=== PATIENT | female | born 1970 | race Caucasian/White ===

== ENCOUNTER → 2022-02-18 14:52 | Outpatient (CLI) | payer OTHER, SELFPAY ==
--- NOTE | ~2022-02-18 | US_ITS ---
EXAMINATION: US transvaginal DATE: 02/18/2022 15:20 INDICATION: Excessive and frequent menstruation with regular cycle. TECHNIQUE: Multiple transvaginal sonographic images of the pelvis were obtained. COMPARISON: None. FINDINGS: The uterus measures 9.2 x 5.3 x 6.1 cm. There is no free fluid in the pelvis. The endometrial complex measures 10 mm in thickness. The right ovary measures 2.3 x 1.6 x 2.1 cm. The left ovary measures 2. 3 x 3.4 x 2.2 cm. IMPRESSION: 1. Normal pelvis. Reviewed, dictated and finalized at location B. IMPRESSION: 1. Normal pelvis.
== END ==
PROVIDERS: PCP Family Medicine; Visit Provider Nurse Practitioner
DX: N92.0 Excessive and frequent menstruation with regular cycle (principal)
CPT/HCPCS: 76830

== ENCOUNTER → 2022-04-03 16:23 | Outpatient (CLI) | payer OTHER, SELFPAY ==
--- NOTE | ~2022-04-03 | MM_ITS ---
EXAMINATION: MM screening millicent BI w aman HISTORY: Screening mammogram TECHNIQUE: Craniocaudal and mediolateral oblique 3-D tomosynthesis images were obtained and synthetic 2-D images were generated. CAD analysis was submitted and interpreted. COMPARISON: No prior mammogram is available for comparison at this institution. BREAST PARENCHYMAL COMPOSITION: The breasts are heterogeneously dense, which may obscure small masses . FINDINGS: There is no evidence of suspicious mass, calcification, or architectural distortion to sugg est malignancy in either breast. There has been no suspicious interval change. IMPRESSION: 1. No mammographic evidence of malignancy. 2. Recommend routine screening mammography in one year. BI-RADS Category 1: Negative Reviewed, dictated and finalized at location A.
== END ==
PROVIDERS: PCP Physician Assistant; Visit Provider Nurse Practitioner
DX: Z12.31 Encounter for screening mammogram for malignant neoplasm of breast (principal)
CPT/HCPCS: 77063; 77067

== ENCOUNTER 2022-10-14 08:37 | Emergency (ER) | payer OTHER, SELFPAY ==
[2022-10-14 08:52] VITALS: BP 132/62; PULSE 65; RESP 16; TEMP 36.2; O2SAT 99
--- NOTE | 2022-10-14 08:53 | ED.URI ---
HPI - URI/Sore Throat General Chief Complaint: Upper Respiratory Infection Stated Complaint: uri Time Seen by Provider: 10/14/22 08:53 Source: patient, RN notes reviewed and old records reviewed Mode of arrival: ambulatory Limitations: no limitations History of Present Illness HPI Narrative: 51-year-old female presents to the [facility] with complaints of sinus congestion, sinus drainage and intermittent dizziness some sometime last week. Reports taking Mucinex. No other treatment prior to arrival. Denies fevers, headache, nausea, vomiting, chest pain or abdominal pain. Treatments prior to arrival: cold medicine Related Data Home Medications Medication Instructions Recorded Confirmed mecobalamin (vitamin B12) 1,000 1,000 mcg PO DAILY 10/24/20 10/14/22 mcg chewable tablet iron 18 mg tablet 18 mg PO DAILY 04/09/22 10/14/22 Allergies Allergy/AdvReac Type Severity Reaction Status Date / Time aspirin Allergy Intermediate Vomiting Verified 10/14/22 08:59 Review of Systems Review of Systems: All systems reviewed & are unremarkable except as noted in HPI and below Constitutional: Constitutional: Reports no additional constitutional complaints Eyes: Eyes: Reports no additional eye complaints ENT: Reports as per HPI and Reports nasal congestion Cardiovascular: Cardiovascular: Reports no additional cardiovascular complaints, Denies chest pain and Denies dyspnea Respiratory: Respiratory: Reports no additional respiratory complaints, Denies chest congestion, Denies cough and Denies dyspnea Gastrointestinal: Gastrointestinal: Reports no additional gastrointestinal complaints, Denies abdominal pain, Denies nausea and Denies vomiting Musculoskeletal: Musculoskeletal: Reports no additional musculoskeletal complaints Integumentary/Breasts: Skin/Breast: Reports system reviewed and no additional complaints, except as docu Neurologic: Reports system reviewed and no additional complaints, except as documented Psychiatric: Psychiatric: Reports no additional psychiatric complaints Allergic/Immunologic: Allergic/Immunologic: Reports no additional allergic/immunologic complaints [facility] Past Medical History Medical History (Updated 10/14/22 @ 09:05 by Jolly Israel APRN) Vitamin D deficiency Surgical History Surgical History H/O bariatric surgery (~2014) H/O tubal ligation (~1995) Hx of cholecystectomy Family History Family History Mother Family history of hypercholesterolemia Hypertension Father Family history of hypercholesterolemia Hypertension Family history of coronary artery disease Grandparent Family history of hypercholesterolemia Hypertension Family history of malignant neoplasm of breast Sibling Family history of hypercholesterolemia Hypertension Social History Social History Smoking status: Current every day smoker Alcohol intake: never Substance use: never Substance use type: does not use Comments At the time of my signature, I reviewed and agree with the nursing past medical, surgical, social, and family history. There is no relevant family history pertinent to the patient complaint. Exam Const: General: cooperative, healthy appearing, comfortable, no acute distress, well developed, alert and well nourished Nutritional Appearance: well nourished Orientation/consciousness: patient oriented x3 Limitations: no limitations HENMT: Head: normal to inspection Ears: hearing grossly normal bilaterally, external ears normal, EAC's normal and TM abnormal bulging on the right and with fluid behind the TM on the right Face/Nose/Sinus: Normal external nose present, Normal nares present, Normal nasal mucous membranes and turbinates present and normal facial exam Face and sinus: normal facial exam Mouth: Yes Normal oral and p
== END 2022-10-14 09:04 | disposition home or self-care (01) ==
PROVIDERS: Emergency Provider Nurse Practitioner; PCP Family Medicine
DX: H65.01 Acute serous otitis media, right ear (principal); J01.90 Acute sinusitis, unspecified; F17.200 Nicotine dependence, unspecified, uncomplicated
CPT/HCPCS: 99213; G0463

== ENCOUNTER 2023-01-17 08:49 | Emergency (ER) | payer OTHER, SELFPAY ==
[2023-01-17 09:00] VITALS: BP 139/88; PULSE 70; RESP 16; TEMP 36.4; O2SAT 99
--- NOTE | 2023-01-17 09:39 | ED.EAR ---
HPI - Ear Problem General Chief complaint: Ear Stated complaint: Left Ear Irritation/Sinus Time Seen by Provider: 01/17/23 09:35 Source: patient Mode of arrival: ambulatory Limitations: no limitations History of Present Illness HPI Narrative: patient is a 52-year-old female who presents with left ear pain and congestion for 2 days. States she has tried her Flonase and allergy medication with little to no relief. patient states she has ear infections frequently. Denies any fever, shortness of breath, cough. Related Data Allergies Allergy/AdvReac Type Severity Reaction Status Date / Time aspirin Allergy Intermediate Vomiting Verified 01/17/23 08:54 Review of Systems Review of Systems: All systems reviewed & are unremarkable except as noted in HPI and below Constitutional: Constitutional: Reports no additional constitutional complaints, Denies body ache(s), Denies chills, Denies excessive sweating, Denies fever(s), Denies headache(s) and Denies malaise Eyes: Eyes: Denies blurry vision, Denies eye discharge and Denies irritation ENT: Reports otalgia, Denies headache(s), Reports nasal congestion, Denies nasal discharge and Denies sore throat Cardiovascular: Cardiovascular: Denies chest pain, Denies edema, Denies palpitations and Denies dyspnea on exertion Respiratory: Respiratory: Denies cough and Denies dyspnea on exertion Gastrointestinal: Gastrointestinal: Denies abdominal pain, Denies diarrhea, Denies nausea and Denies vomiting Musculoskeletal: Musculoskeletal: Denies back pain, Denies arthralgias and Denies muscle weakness Integumentary/Breasts: Skin/Breast: Denies pruritus and Denies rash Neurologic: Denies headache(s) Psychiatric: Psychiatric: Reports no additional psychiatric complaints Endocrine: Endocrine: Denies excessive sweating and Denies palpitations [facility] Past Medical History Medical History (Updated 01/17/23 @ 09:41 by Emilie Salazar APRN) Vitamin D deficiency Surgical History Surgical History H/O bariatric surgery (~2014) H/O tubal ligation (~1995) Hx of cholecystectomy Family History Family History Mother Family history of hypercholesterolemia Hypertension Father Family history of hypercholesterolemia Hypertension Family history of coronary artery disease Grandparent Family history of hypercholesterolemia Hypertension Family history of malignant neoplasm of breast Sibling Family history of hypercholesterolemia Hypertension Social History Social History (Updated 10/28/22 @ 09:52 by Rebecca Sandoval PA-C) Smoking status: Current every day smoker Alcohol intake: never Substance use: never Substance use type: does not use Lack of Transportation: No Lack of Food: Never True Current Housing: I Have Housing Concerned About Future Housing: No Difficulty Paying Gas/Electric Bills: No Difficulty Paying for Meds: No Currently Unemployed: No Education: Master's Degree or Higher Difficulty w/ Childcare or Family Care: No Comments At time of signature, agree with nursing past medical, surgical, social and family history. There is no relevant family history pertinent to the presenting complaint? Exam Const: General: cooperative, healthy appearing, no acute distress and well nourished Nutritional Appearance: well nourished Orientation/consciousness: patient oriented x3 Limitations: no limitations HENMT: Head: normal to inspection, normocephalic and atraumatic Ears: hearing grossly normal bilaterally, TM normal on the right, no periauricular adenopathy and TM abnormal bulging on the left and erythematous on the left Face/Nose/Sinus: Normal external nose present, Normal nares present, Normal nasal mucous membranes and turbinates present, No nasal discharge present, normal facial exam and sinuses nontender Face and sinus: normal facial e
== END 2023-01-17 09:45 | disposition home or self-care (01) ==
PROVIDERS: Emergency Provider Nurse Practitioner Family; PCP Family Medicine
DX: H66.92 Otitis media, unspecified, left ear (principal); F17.200 Nicotine dependence, unspecified, uncomplicated
CPT/HCPCS: 99213; G0463

== ENCOUNTER 2023-08-03 13:23 | Emergency (ER) | payer OTHER, SELFPAY ==
[2023-08-03 13:35] VITALS: BP 128/75; PULSE 63; RESP 16; TEMP 36.8; O2SAT 98
--- NOTE | 2023-08-03 13:56 | ED.URI ---
HPI - URI/Sore Throat General Chief Complaint: Upper Respiratory Infection Stated Complaint: headache, stuffy nose Time Seen by Provider: 08/03/23 13:56 Source: patient, RN notes reviewed and old records reviewed Mode of arrival: ambulatory Limitations: no limitations History of Present Illness HPI Narrative: 52-year-old female presents to the [facility] with complaints of a headache and stuffy nose. Symptoms started 1 week ago. Has taken [id number] products a couple of times with minimal relief. Denies any fevers. Denies chest pain or shortness of breath. Denies coughing. Onset (ago): week(s) (1) Related Data Allergies Allergy/AdvReac Type Severity Reaction Status Date / Time aspirin Allergy Intermediate Vomiting Verified 01/29/23 14:55 Review of Systems Review of Systems: All systems reviewed & are unremarkable except as noted in HPI and below Constitutional: Constitutional: Reports no additional constitutional complaints Eyes: Eyes: Reports no additional eye complaints ENT: Reports as per HPI, Reports nasal congestion, Reports sinus pressure and Reports sore throat Cardiovascular: Cardiovascular: Reports no additional cardiovascular complaints, Denies chest pain and Denies dyspnea Respiratory: Respiratory: Reports no additional respiratory complaints, Denies chest congestion, Denies cough and Denies dyspnea Gastrointestinal: Gastrointestinal: Reports no additional gastrointestinal complaints, Denies abdominal pain, Denies nausea and Denies vomiting Musculoskeletal: Musculoskeletal: Reports no additional musculoskeletal complaints Integumentary/Breasts: Skin/Breast: Reports system reviewed and no additional complaints, except as docu Neurologic: Reports system reviewed and no additional complaints, except as documented Psychiatric: Psychiatric: Reports no additional psychiatric complaints Allergic/Immunologic: Allergic/Immunologic: Reports no additional allergic/immunologic complaints [facility] Past Medical History Medical History Vitamin D deficiency Surgical History Surgical History H/O bariatric surgery (~2014) H/O tubal ligation (~1995) Hx of cholecystectomy Family History Family History Mother Family history of hypercholesterolemia Hypertension Father Family history of hypercholesterolemia Hypertension Family history of coronary artery disease Grandparent Family history of hypercholesterolemia Hypertension Family history of malignant neoplasm of breast Sibling Family history of hypercholesterolemia Hypertension Social History Social History Smoking status: Current every day smoker Alcohol intake: never Substance use: never Substance use type: does not use Lack of Transportation: No Lack of Food: Never True Current Housing: I Have Housing Concerned About Future Housing: No Difficulty Paying Gas/Electric Bills: No Difficulty Paying for Meds: No Currently Unemployed: No Education: Master's Degree or Higher Difficulty w/ Childcare or Family Care: No Comments At the time of my signature, I reviewed and agree with the nursing past medical, surgical, social, and family history. There is no relevant family history pertinent to the patient complaint. Exam Const: General: cooperative, healthy appearing, comfortable, no acute distress, well developed, alert and well nourished Nutritional Appearance: well nourished Orientation/consciousness: patient oriented x3 Limitations: no limitations HENMT: Head: normal to inspection Ears: hearing grossly normal bilaterally, external ears normal, TM's normal bilaterally and EAC's normal Face/Nose/Sinus: Normal external nose present, Normal nares present, Normal nasal mucous membranes and turbinates present
== END 2023-08-03 14:08 | disposition home or self-care (01) ==
PROVIDERS: Emergency Provider Nurse Practitioner; PCP Family Medicine
DX: J06.9 Acute upper respiratory infection, unspecified (principal); F17.200 Nicotine dependence, unspecified, uncomplicated
CPT/HCPCS: 87081; 87880; 99213; G0463

== ENCOUNTER 2023-08-26 11:17 | Outpatient (CLI) | payer OTHER, SELFPAY ==
--- NOTE | ~2023-08-26 | XR_ITS ---
Clinical Indication: Cough PA and lateral views of the chest: Comparison: None Findings: The lungs are clear, without evidence of focal consolidation or pleural effusion. Cardiome diastinal silhouette is within normal limits. Calcified right paratracheal lymph nodes noted. Bones a nd soft tissues are unremarkable. Impression: Clear lungs. Reviewed, dictated and finalized at location . Impression: Clear lungs.
--- NOTE | ~2023-08-26 | XR_ITS ---
EXAMINATION: XR abdomen/kub 1V DATE: 08/26/2023 11:26 INDICATION: Abdominal pain. TECHNIQUE: A supine view of the abdomen on 2 radiographs was obtained. COMPARISON: None. FINDINGS: There are no dilated loops of bowel. There is a small volume of stool in the colon. Surgica l clips in the right upper quadrant are likely from cholecystectomy. There is a small hiatal hernia. A calcified left lung nodule and calcified mediastinal lymph nodes are consistent with old granulomat ous disease. IMPRESSION: 1. Small hiatal hernia. Reviewed, dictated and finalized at location E. IMPRESSION: 1. Small hiatal hernia.
== END 2023-08-26 11:18 ==
PROVIDERS: PCP Family Medicine; Visit Provider Family Medicine
DX: R10.9 Unspecified abdominal pain (principal); R05.9 Cough, unspecified; K44.9 Diaphragmatic hernia without obstruction or gangrene
CPT/HCPCS: 71046; 74018

== ENCOUNTER 2023-08-27 14:29 | Outpatient (CLI) | payer OTHER, SELFPAY ==
[2023-08-27 15:24] LABS: Alanine Aminotransferase 328 U/L (6-35); Albumin Level 4.2 g/dL (3.5-5.1); Alkaline Phosphatase 238 U/L (38-126); Aspartate Amino Transferase 178 U/L (14-36); Bilirubin,Total 0.6 mg/dL (0.2-1.3)
[2023-08-27 15:33] LABS: Prothrombin Time 13.3 Seconds (11.1-14.7)
[2023-08-27 16:44] LABS: Hepatitis B Surface Antigen Negative (Negative)
[2023-08-27 16:50] LABS: HAV RESULT Negative (Negative); Hepatitis B Core IgM Result Negative (Negative)
[2023-08-27 17:02] LABS: Hepatitis C Virus Antibody Negative (Negative)
== END 2023-08-27 14:30 | disposition home or self-care (01) ==
PROVIDERS: PCP Family Medicine; Visit Provider Physician Assistant
DX: R74.8 Abnormal levels of other serum enzymes (principal); R79.89 Other specified abnormal findings of blood chemistry
CPT/HCPCS: 36415; 80074; 80076; 85610

== ENCOUNTER 2023-08-28 06:41 | Outpatient (CLI) | payer OTHER, SELFPAY ==
--- NOTE | ~2023-08-28 | US_ITS ---
EXAMINATION: US abdomen limited DATE: 08/28/2023 07:30 INDICATION: Abnormal levels of other serum enzymes. TECHNIQUE: Multiple grayscale and Doppler ultrasound images of the abdomen were obtained. COMPARISON: None FINDINGS: The visualized portions of the head, body, and tail of the pancreas are normal. There is di ffuse hepatic steatosis. No liver surface nodularity. There is normal flow in main portal vein. The g allbladder is absent. The common duct is normal and measures 8 mm. IMPRESSION: 1. Diffuse hepatic steatosis. Reviewed, dictated and finalized at location E.
== END 2023-08-28 06:42 | disposition home or self-care (01) ==
LOC: ANHIMG 06:45
PROVIDERS: PCP Family Medicine; Visit Provider Physician Assistant
DX: K76.0 Fatty (change of) liver, not elsewhere classified (principal)
CPT/HCPCS: 76705

== ENCOUNTER → 2023-11-19 08:44 | Outpatient (CLI) | payer OTHER, SELFPAY ==
--- NOTE | ~2023-11-19 | CT_ITS ---
EXAMINATION:CT lung screening DATE: 11/19/2023 08:55 INDICATION: Personal history of nicotine dependence. Current smoker with 27 pack year history. TECHNIQUE: Computed tomography (CT) of the chest was performed without intravenous contrast. Automate d exposure control and iterative reconstruction technique were employed. The dose-length product (DLP ) was 101.42 mGy-cm. COMPARISON: Chest 2 views 08/26/2023 FINDINGS: A calcified left lung nodule and calcified left hilar and mediastinal lymph nodes are consi stent with old granulomatous disease. No pleural effusion. The heart size is normal. No pericardial e ffusion. There is a small sliding hiatal hernia. There are surgical changes of the stomach. There is mild thoracic spondylosis. IMPRESSION: 1. Lung-RADS category 1: Negative. Continue annual screening with noncontrast low-dose chest CT in 12 months. Reviewed, dictated and finalized at location E. [employer] IMPRESSION: 1. Lung-RADS category 1: Negative. Continue annual screening with noncontrast l ow-dose chest CT in 12 months.
== END ==
PROVIDERS: PCP Physician Assistant; Visit Provider Physician Assistant
DX: Z12.2 Encounter for screening for malignant neoplasm of respiratory organs (principal); Z87.891 Personal history of nicotine dependence
CPT/HCPCS: 71271

== ENCOUNTER 2023-12-28 01:27 | Day surgery (SDC) | payer OTHER, SELFPAY ==
[2023-11-27 10:36] VITALS: BMI 33.0
--- NOTE | 2023-12-25 12:28 | SUR.PREOP ---
Patient called regarding upcoming procedure. Reviewed preop instructions, appointment times, and procedure prep.
--- NOTE | 2023-12-25 17:10 | PM.HPGS ---
History of Present Illness History of Present Illness Consent: Risks, benefits, and alternatives have been discussed and questions answered. Patient agrees to proceed with procedure. Chief complaint: neoplasm screening Narrative: Xiomara Rangel is a 53 year old female referred for colon cancer screening Review of Systems Review of Systems: All systems reviewed & are unremarkable except as noted in HPI and below PMFSH Past Medical History Medical History Obesity Vitamin D deficiency Surgical History Surgical History H/O bariatric surgery (~2014) H/O tubal ligation (~1995) Hx of cholecystectomy Family History Family History Mother Family history of hypercholesterolemia Hypertension Father Family history of hypercholesterolemia Hypertension Family history of coronary artery disease Grandparent Family history of hypercholesterolemia Hypertension Family history of malignant neoplasm of breast Sibling Family history of hypercholesterolemia Hypertension Social History Social History Years smoked: 3 Smoking status: Light tobacco smoker Tobacco type: cigarettes Alcohol intake: never Substance use: never Substance use type: does not use Lack of Transportation: No Lack of Food: Never True Current Housing: I Have Housing Concerned About Future Housing: No Difficulty Paying Gas/Electric Bills: No Difficulty Paying for Meds: No Currently Unemployed: No Education: Master's Degree or Higher Difficulty w/ Childcare or Family Care: No Living arrangements: alone Spiritual care concerns: No Meds Home Medications and Allergies Home Medications Medication Instructions Recorded Confirmed Type pantoprazole 40 mg tablet,delayed 40 mg PO QAM #30 tabs 11/23/23 11/27/23 Rx release (Protonix) celecoxib 200 mg capsule 200 mg PO PRN PRN Pain 11/27/23 11/27/23 History Allergies Allergy/AdvReac Type Severity Reaction Status Date / Time aspirin Allergy Intermediate Vomiting Verified 12/28/23 07:56 Exam Resp: Auscultation: clear to auscultation bilaterally Cardio: Rate: regular rate Rhythm: regular rhythm GI: GI Palp: Yes Soft to palpation and No Tenderness to palpation present (GI) Assessment and Plan Assessment and plan (1) Colon cancer screening: Code(s): Z12.11 - Encounter for screening for malignant neoplasm of colon Status: Acute Assessment and Plan: Colonoscopy with possible biopsy or polypectomy or cautery or injection of substances.
[2023-12-28 07:58] VITALS: BP 113/77; PULSE 65; RESP 18; TEMP 36.2; O2SAT 99
[2023-12-28] MEDS: LACTATED RINGERS 1,000 ML 150 ML IV CONT (08:06)
--- NOTE | 2023-12-28 08:12 | WPDANESEPPF ---
Anes - Initial Pre Proc Eval Procedure: Operation Date: 12/28/23 09:00 Proposed Procedures p Screening Colonoscopy - Malvin Metzger MD Date/Time: 12/28/23 08:12 Surgeon: Malvin Metzger MD Pre Op Diagnosis: neoplasm screening Patient Data Age: 53 Gender: F Height: 1.7 m Weight: 95.5 kg Last Vital Signs Temp 36.2 C L 12/28/23 07:58 Pulse 65 12/28/23 07:58 Resp 18 12/28/23 07:58 BP 113/77 12/28/23 07:58 Pulse Ox 65 L 12/28/23 07:58 O2 Del Method Room Air 12/28/23 07:58 Allergies Allergy/AdvReac Type Severity Reaction Status Date / Time aspirin Allergy Intermediate Vomiting Verified 12/28/23 07:56 Home Medications Medication Instructions Recorded Confirmed Type pantoprazole 40 mg tablet,delayed 40 mg PO QAM #30 tabs 11/23/23 11/27/23 Rx release (Protonix) celecoxib 200 mg capsule 200 mg PO PRN PRN Pain 11/27/23 11/27/23 History Patient hx anesthesia problems: none Family hx anesthesia problems: none Results Review: All pre-operative results and documents have been reviewed as part of the pre-operative evaluation. [facility] Past Medical History Medical History (Updated 12/28/23 @ 08:12 by John Hay MD) Obesity Vitamin D deficiency Surgical History Surgical History H/O bariatric surgery (~2014) H/O tubal ligation (~1995) Hx of cholecystectomy Family History Family History Mother Family history of hypercholesterolemia Hypertension Father Family history of hypercholesterolemia Hypertension Family history of coronary artery disease Grandparent Family history of hypercholesterolemia Hypertension Family history of malignant neoplasm of breast Sibling Family history of hypercholesterolemia Hypertension Social History Social History Years smoked: 3 Smoking status: Light tobacco smoker Tobacco type: cigarettes Alcohol intake: never Substance use: never Substance use type: does not use Lack of Transportation: No Lack of Food: Never True Current Housing: I Have Housing Concerned About Future Housing: No Difficulty Paying Gas/Electric Bills: No Difficulty Paying for Meds: No Currently Unemployed: No Education: Master's Degree or Higher Difficulty w/ Childcare or Family Care: No Living arrangements: alone Spiritual care concerns: No Anes - Eval Final PreProcedure Day of Procedure 12/28/23 08:12 Patient weight: obese Heart: regular rate and rhythm Lungs: clear to auscultation Airway: Mallampati scale class II Neurological: alert and oriented Last oral intake: >/= 8 hours ASA classification: III Emergent: no Anesthetic plan: proceed Anesthesia type and monitoring: general GIVS and standard monitoring Results Review: All pre-operative results and documents have been reviewed as part of the pre-operative evaluation. Informed Consent: The patient's anesthetic plan and its attendant risks and benefits were discussed with the patient/family/POA. Questions were solicited and answers provided to the satisfaction of the patient/family/POA.
[2023-12-28] MEDS: SIMETHICONE ORAL SUSPENSION 20 MG/0.3 ML 30 ML BOTTLE 0.6 ML IRRIGATION (09:03)
[2023-12-28 09:10] VITALS: BP 110/63; PULSE 60; RESP 16; O2SAT 99
[2023-12-28 09:20] VITALS: BP 109/61; PULSE 65; RESP 21; O2SAT 99
[2023-12-28 09:30] VITALS: BP 135/88; PULSE 60; RESP 16; O2SAT 100
== END 2023-12-28 09:35 | disposition home or self-care (01) ==
PROVIDERS: PCP Physician Assistant; Visit Provider Internal Medicine Gastroenterology
PROC: 0DJD8ZZ Inspection of Lower Intestinal Tract, Via Natural or Artificial Opening Endoscopic (ICD-10-PCS; CPT 45378; principal; 2023-12-28 09:00)
DX: Z12.11 Encounter for screening for malignant neoplasm of colon (principal); K62.89 Other specified diseases of anus and rectum; E55.9 Vitamin D deficiency, unspecified; F17.210 Nicotine dependence, cigarettes, uncomplicated; E66.9 Obesity, unspecified; Z68.33 Body mass index [BMI] 33.0-33.9, adult; Z98.84 Bariatric surgery status; Z90.49 Acquired absence of other specified parts of digestive tract; Z82.49 Family history of ischemic heart disease and other diseases of the circulatory system; Z80.3 Family history of malignant neoplasm of breast
CPT/HCPCS: 45378; J2704; J7120

== ENCOUNTER 2024-05-06 11:12 | Emergency (ER) | payer OTHER, SELFPAY ==
--- NOTE | 2024-05-06 11:17 | ED.URI ---
HPI - URI/Sore Throat General Chief Complaint: Upper Respiratory Infection Stated Complaint: sore throat,ears hurt, cold symptoms Time Seen by Provider: 05/06/24 11:24 Source: patient, RN notes reviewed and old records reviewed Mode of arrival: ambulatory Limitations: no limitations History of Present Illness HPI Narrative: 53-year-old female presents to the [facility] with complaints of URI symptoms x1 week. Reports bilateral ear pain. Related Data Home Medications Medication Instructions Recorded Confirmed celecoxib 200 mg capsule 200 mg PO PRN PRN Pain 11/27/23 05/06/24 albuterol sulfate 90 mcg/actuation 2 puff inhalation QID 05/06/24 05/06/24 aerosol inhaler Allergies Allergy/AdvReac Type Severity Reaction Status Date / Time aspirin Allergy Intermediate Vomiting Verified 05/06/24 11:15 Review of Systems Review of Systems: All systems reviewed & are unremarkable except as noted in HPI and below Constitutional: Constitutional: Reports no additional constitutional complaints Eyes: Eyes: Reports no additional eye complaints ENT: Reports as per HPI Cardiovascular: Cardiovascular: Reports no additional cardiovascular complaints, Denies chest pain and Denies dyspnea Respiratory: Respiratory: Reports no additional respiratory complaints, Denies chest congestion, Denies cough and Denies dyspnea Gastrointestinal: Gastrointestinal: Reports no additional gastrointestinal complaints, Denies abdominal pain, Denies nausea and Denies vomiting Musculoskeletal: Musculoskeletal: Reports no additional musculoskeletal complaints Integumentary/Breasts: Skin/Breast: Reports system reviewed and no additional complaints, except as docu Neurologic: Reports system reviewed and no additional complaints, except as documented Psychiatric: Psychiatric: Reports no additional psychiatric complaints Allergic/Immunologic: Allergic/Immunologic: Reports no additional allergic/immunologic complaints [facility] Past Medical History Medical History Obesity Vitamin D deficiency Surgical History Surgical History H/O bariatric surgery (~2014) H/O tubal ligation (~1995) Hx of cholecystectomy Family History Family History Mother Family history of hypercholesterolemia Hypertension Father Family history of hypercholesterolemia Hypertension Family history of coronary artery disease Grandparent Family history of hypercholesterolemia Hypertension Family history of malignant neoplasm of breast Sibling Family history of hypercholesterolemia Hypertension Social History Social History Years smoked: 3 Smoking status: Light tobacco smoker Tobacco type: cigarettes Alcohol intake: never Substance use: never Substance use type: does not use Lack of Transportation: No Lack of Food: Never True Current Housing: I Have Housing Concerned About Future Housing: No Difficulty Paying Gas/Electric Bills: No Difficulty Paying for Meds: No Currently Unemployed: No Education: Master's Degree or Higher Difficulty w/ Childcare or Family Care: No Living arrangements: alone Spiritual care concerns: No Comments At the time of my signature, I reviewed and agree with the nursing past medical, surgical, social, and family history. There is no relevant family history pertinent to the patient complaint. Exam Const: General: cooperative, healthy appearing, comfortable, no acute distress, well developed, alert and well nourished Nutritional Appearance: well nourished Orientation/consciousness: patient oriented x3 Limitations: no limitations HENMT: Head: normal to inspection Ears: hearing grossly normal bilaterally, external ears normal, TM normal on the right, mastoids normal, no periauricular adenopa
[2024-05-06 11:27] VITALS: BP 128/73; PULSE 73; RESP 20; TEMP 37.2; O2SAT 96
[2024-05-06 11:43] LABS: EDINFLUASCREEN Negative; EDINFLUBSCREEN Negative
== END 2024-05-06 11:50 | disposition home or self-care (01) ==
PROVIDERS: Emergency Provider Nurse Practitioner; PCP Family Medicine
DX: H66.91 Otitis media, unspecified, right ear (principal); R09.82 Postnasal drip; J06.9 Acute upper respiratory infection, unspecified; Z20.822 Contact with and (suspected) exposure to COVID-19; F17.210 Nicotine dependence, cigarettes, uncomplicated
CPT/HCPCS: 87426; 87804; 99213; G0463

== ENCOUNTER 2024-06-08 18:10 | Emergency (ER) | payer OTHER, SELFPAY ==
--- NOTE | 2024-06-08 18:12 | ED.URI ---
HPI - URI/Sore Throat General Chief Complaint: Upper Respiratory Infection Stated Complaint: Ears/Sinus Time Seen by Provider: 06/08/24 18:12 Source: patient Mode of arrival: ambulatory Limitations: no limitations History of Present Illness HPI Narrative: Xiomara is a 53-year-old female patient presenting to the clinic today with complaints of sinus congestion and left ear pain. She reports sinus symptoms started at the end of April. Has been seen in the clinic on May 08 and treated for a otitis media of the left ear. She finished antibiotics at that time. States that the sinus symptoms continued and now she is again having left ear pain. Denies any fever or chills. Has not been taking any medicines to help alleviate her symptoms. MD elicited complaint: rhinorrhea, nasal congestion and sinus pain Related Data Home Medications Medication Instructions Recorded Confirmed celecoxib 200 mg capsule 200 mg PO PRN PRN Pain 11/27/23 06/08/24 albuterol sulfate 90 mcg/actuation 2 puff inhalation QID PRN sob 05/06/24 06/08/24 aerosol inhaler Allergies Allergy/AdvReac Type Severity Reaction Status Date / Time aspirin Allergy Intermediate Vomiting Verified 06/08/24 18:10 Review of Systems Review of Systems: Pertinent positives per HPI. Patient denies any fever, chills, rash, headache, visual changes, dizziness, cough, shortness of breath, chest pain, palpitations, nausea, vomiting, diarrhea, constipation, abdominal pain, or any urinary issues. [facility] Past Medical History Medical History Obesity Vitamin D deficiency Surgical History Surgical History H/O bariatric surgery (~2014) H/O tubal ligation (~1995) Hx of cholecystectomy Family History Family History Mother Family history of hypercholesterolemia Hypertension Father Family history of hypercholesterolemia Hypertension Family history of coronary artery disease Grandparent Family history of hypercholesterolemia Hypertension Family history of malignant neoplasm of breast Sibling Family history of hypercholesterolemia Hypertension Social History Social History Years smoked: 3 Smoking status: Light tobacco smoker Tobacco type: cigarettes Alcohol intake: never Substance use: never Substance use type: does not use Lack of Transportation: No Lack of Food: Never True Current Housing: I Have Housing Concerned About Future Housing: No Difficulty Paying Gas/Electric Bills: No Difficulty Paying for Meds: No Currently Unemployed: No Education: Master's Degree or Higher Difficulty w/ Childcare or Family Care: No Living arrangements: alone Spiritual care concerns: No Comments At the time of my signature, I reviewed and agree with the nursing past medical, surgical, social, and family history. There is no relevant family history pertinent to the patient complaint. Exam Narrative: General: Well-developed, well nourished, in no apparent distress Head: Normocephalic, atraumatic Eyes: Pupils equally round and reactive to light bilaterally, EOM intact, sclera and conjunctive clear, no discharge, lids normal Ears: Right TMs intact and congested, left TM intact, bulging, red, r, ear canals clear, no drainage, grossly hearing normal. Nose: Nares patent, yellow nasal discharge, moderate inflammation, maxillary and frontal sinus tenderness. Mouth: Oral pharynx without lesions or masses, good dentition, MMM. Neck: Supple, trachea midline, no enlargement of anterior or posterior cervical nodes, no thyroid masses or goiter palpable. Cardio: Regular rate and rhythm, s1 and s2 normal, no murmur appreciated. Resp: Clear to auscultation bilaterally, no rhonchi, rales, wheezing or rubs Course
[2024-06-08 18:22] VITALS: BP 174/90; PULSE 78; RESP 18; TEMP 36.6; O2SAT 100
== END 2024-06-08 18:30 | disposition home or self-care (01) ==
PROVIDERS: Emergency Provider Nurse Practitioner Family; PCP Family Medicine
DX: J01.90 Acute sinusitis, unspecified (principal); H66.92 Otitis media, unspecified, left ear; F17.210 Nicotine dependence, cigarettes, uncomplicated
CPT/HCPCS: 99213; G0463

== ENCOUNTER 2025-05-20 11:02 | Emergency (ER) | payer OTHER, SELFPAY ==
[2025-05-20 11:13] VITALS: BP 127/89; PULSE 69; RESP 18; TEMP 37; O2SAT 98
[2025-05-20 11:29] LABS: EDUAAPPEAR Clear; EDUABILI Negative (Negative); EDUABLOOD 1+ (Negative); EDUACOLOR1 Yellow; EDUAGLUCOSE Negative (Negative); EDUAKETONE Negative (Negative); EDUALEUKO Negative (Negative); EDUANITRATE Negative (Negative); EDUAPH 7.0; EDUAPROTEIN Negative (Negative); EDUASPGRAVITY 1.015; EDUAUROBILI 0.2
--- NOTE | 2025-05-20 11:36 | ED_ITS ---
HPI - Female Genitourinary General Chief complaint: Urogenital-Female Stated complaint: urinary irritation Time Seen by Provider: 05/20/25 11:20 Source: patient and RN notes reviewed Mode of arrival: ambulatory Limitations: no limitations History of Present Illness HPI Narrative: 54-year-old female presents [facility] complaining vaginal discharge, vaginal irritation vaginal itchiness, for approximately 2 weeks. Patient also reports foul smelling discharge. Reports clear and watery. Patient also reports some mild abdominal discomfort. Patient denies any dysuria, frequency, hesitancy, blood in the urine, vaginal bleeding, pelvic pain, nausea, vomiting, fevers, as symptoms. Patient denies any concerns for STDs. Patient has not tried anything to help with symptoms. Related Data Home Medications ?Medication ?Instructions ?Recorded ?Confirmed ?Last Taken ?Type sucralfate 1 gram tablet 05/20/25 Unknown History Allergies Allergy/AdvReac Type Severity Reaction Status Date / Time aspirin Allergy Intermediate Vomiting Verified 05/20/25 11:04 Review of Systems Review of Systems: CONSTITUTIONAL: Denies fever, chills, or sweats. EYES: Denies visual changes, redness, or discharge. ENT: Denies rhinorrhea, congestion, sore throat, or otalgia. CARDIOVASCULAR: Denies chest pain, palpitations, or edema. RESPIRATORY: Denies cough or dyspnea. GASTROINTESTINAL: Denies abdominal pain, nausea, vomiting, or diarrhea. GENITOURINARY: Denies dysuria, vaginal bleeding, pelvic pain, or hematuria. Positive for vaginal irritation of vaginal itchiness, foul vaginal discharge,. SKIN: Denies rash or itching. MUSCULOSKELETAL: Denies back pain, joint pain, or myalgia. NEUROLOGIC: Denies headache, numbness, or weakness. PSYCHIATRIC: Denies anxiety or depression. All other systems reviewed are negative, except as documented in HPI. [facility], [facility] Past Medical History Medical History Obesity Vitamin D deficiency Surgical History Surgical History H/O bariatric surgery (~2014) Hx of cholecystectomy H/O tubal ligation (~1995) Family History Family History Mother Family history of hypercholesterolemia Hypertension Father Family history of hypercholesterolemia Hypertension Family history of coronary artery disease Grandparent Family history of hypercholesterolemia Hypertension Family history of malignant neoplasm of breast Sibling Family history of hypercholesterolemia Hypertension Social History Social History Years smoked: 3 Smoking status: Light tobacco smoker Tobacco type: cigarettes Alcohol intake: never Substance use: never Substance use type: does not use Lack of Transportation: No Lack of Food: Never True Current Housing: I Have Housing Concerned About Future Housing: No Difficulty Paying Gas/Electric Bills: No Difficulty Paying for Meds: No Currently Unemployed: No Education: Master's Degree or Higher Difficulty w/ Childcare or Family Care: No Living arrangements: alone Spiritual care concerns: No Comments At the time of my signature, I reviewed and agree with the nursing past medical, surgical, social, and family history. There is no relevant family history pertinent to the patient complaint. Exam Narrative: GENERAL: This is a well-nourished, well-developed adult, in no apparent distress. They are non ill-appearing, nontoxic appearing. HEAD: normocephalic, atraumatic. EYES: Sclera clear/white. Conjunctiva normal. Vision is grossly intact. Extraocular movements intact EARS: External ears normal, Hearing grossly intact. NOSE: External nose normal THROAT: Mucous membranes moist, NECK: Neck supple, . CARDIOVASCULAR: Regular rate and rhythm without murmurs, gallops, or rubs. RESPIRATORY: Clear to auscultation. Breath sounds equal bilaterally. No wheezes, rales, or rhonchi. GASTROINTESTINAL: Abdomen soft, non-tender, nondistended. Bowel sounds are active. No hepato-splenomegaly, or palpable masses. No guarding. GENITOURINARY: Declined pelvic exam and speculum exam. SKIN: warm, Dry, intact with no suspicious lesions or rash, good texture and turgor. NEURO: awake, alert, and oriented to person, place and time. There were no obv ious focal neurologic abnormalities. EXTREMITIES: No joint tenderness, effusion, or edema noted. BACK: Nontender without deformity. No CVA tenderness. Course Course Emergency Course: Portions of this record may have been created with voice recognition software Level of Care: Express Care Visit Vital Signs Vital signs: Vital Signs Temperature 98.6 F 05/20/25 11:13 Pulse Rate 69 05/20/25 11:13 Respiratory Rate 18 05/20/25 11:13 Blood Pressure 127/89 05/20/25 11:13 Pulse Oximetry 98 05/20/25 11:13 Oxygen Delivery Room Air 05/20/25 11:13 Temperature 98.6 F 05/20/25 11:13 Pulse Rate 69 05/20/25 11:13 Respiratory Rate 18 05/20/25 11:13 Blood Pressure 127/89 05/20/25 11:13 Pulse Oximetry 98 05/20/25 11:13 Oxygen Delivery Room Air 05/20/25 11:13 Reviewed MDM - Female Genitourinary MDM Narrative Medical decision making narrative: No peritoneal findings on exam. Nontender to palpation turn in abdominal exam. Patient's urine dipstick shows no evidence urinary tract infection. A urinary culture is pending. Patient's symptoms are likely consistent with bacterial vaginosis. Offered patient pelvic exam and speculum exam to further evaluate her symptoms and obtained swabs and she declined. She would like to go ahead and be treated for bacterial vaginosis. Patient adamantly denies any concern for STDs and would not like any further testing. Will go ahead and send a prescription over for metronidazole along with fluconazole if symptoms do not improve within 3 days. Discussed physical exam findings. Advised supportive measures and signs/symptoms to go to the ER. Pt is appropriate for outpt treatment and f/u. Differential Diagnosis Differential diagnosis: Likely urinary tract infection, bacterial vaginosis and other (STD, vaginal yeast infection, vaginitis) Lab Data Attestation: I reviewed the patient's lab results. Labs: Lab Results 05/20/25 Range/Units 11:18 POC Urine Color Yellow POC Urine Clarity Clear POC Urine pH 7.0 POC Ur Specif [place] 1.015 POC Urine Protein Negative (Negative) POC Ur Glucose (UA) Negative (Negative) POC Urine Ketones Negative (Negative) POC Urine Blood 1+ (Negative) POC Urine Nitrite Negative (Negative) POC Urine Bilirubin Negative (Negative) POC Urine Urobilinogen 0.2 POC U Leukocyte Esteras Negative (Negative) Critical Care Time Critical Care Time Critical Care Time: No Discharge Plan Discharge Clinical Impression: Vaginal irritation Patient Disposition: Home Condition: Stable Instructions: Antibiotic Form, Bacterial Vaginosis (ED) Additional Instructions: Take the antibiotic as directed. Do not drink alcohol taking metronidazole. If your symptoms do not improve within 3 days, take fluconazole as directed as it may be a yeast infection if it does not resolve on metronidazole... You may repeat a fluconazole dose 72 hours after the initial dose if symptoms persist. It is likely you have bacterial vaginosis. Your urine was negative for any evidence of infection. Culture will be sent off and if it is positive for any bacteria you will be contacted started on appropriate antibiotics. Follow-up with your OBGYN her PCP in 3-5 days. If you develop worsening abdominal pain, pelvic pain, nausea, vomiting, fevers, any other concerns please go to the ER immediately. Patient Language: Brazilian Prescriptions: New fluconazole 150 mg tablet 150 mg PO Q72H 3 Days Qty: 2 0RF Rx Instructions: May repeat additional dose in 72 hours if symptoms do not resolve. metronidazole 500 mg tablet 500 mg PO BID 7 Days Qty: 14 0RF No Action sucralfate 1 gram tablet pantoprazole [Protonix] 40 mg tablet,delayed release (DR/EC) 40 mg PO QAM Qty: 30 2RF Follow-up/Referrals: Lico,John Pedraza MD [Primary Care Provider] - Time of Disposition: 11:33
== END 2025-05-20 11:46 | disposition home or self-care (01) ==
PROVIDERS: PCP Family Medicine
DX: N89.8 Other specified noninflammatory disorders of vagina (principal); F17.210 Nicotine dependence, cigarettes, uncomplicated
CPT/HCPCS: 81003; 87086; 99213; G0463